=== PATIENT | male | born 1965 | race Caucasian/White ===

== ENCOUNTER 2020-01-28 15:00 | Emergency (ER) | payer OTHER ==
[2020-01-28] MEDS ORDERED: DIPH/PERTUSS(ACELL)/TETANUS VAC/PF 0.5 ML SYR (>=10YO) IM ONE (15:54)
--- NOTE | 2020-01-28 16:34 | RADIOLOGY REPORT (SQ) ---
EXAM DESCRIPTION: KNEE RIGHT 4 VIEWS IMAGES COMPLETED DATE/TIME: 01/28/2020 3:07 pm REASON FOR STUDY: knee laceration; hx of surgery COMPARISON: None. NUMBER OF VIEWS: Four views. TECHNIQUE: AP, lateral, and both oblique radiographic images acquired of the right knee. LIMITATIONS: None. FINDINGS: MINERALIZATION: Normal. BONES: No acute fracture or dislocation. No worrisome bone lesions. JOINT: No effusion. SOFT TISSUES: No soft tissue swelling. No radio-opaque foreign body. OTHER: No other significant finding. IMPRESSION: No radiographic abnormality of the right knee. TECHNICAL DOCUMENTATION: JOB ID: [id number]- All Rights Reserved Reading location - IP/workstation name: [email or web address]
--- NOTE | 2020-01-28 16:38 | ER Document Report ---
HPI - HPI Time Seen by Provider: 01/28/20 15:47 Context: Patient is a 54-year-old male who presents to the emergency department with a chief complaint of right knee pain. Patient states that he was gardening and was laying mulch down. He had some pruning lenin on the ground and went to go kneel down and kneeled into the lenin. Patient is able to walk. He is up-to-date on his tetanus immunization. Patient has history of surgery to his right knee before from an infection. - CONSTITUTIONAL Constitutional: DENIES: Fever, Chills - NEURO Neurology: DENIES: Weakness - CARDIOVASCULAR Cardiovascular: DENIES: Chest pain - RESPIRATORY Respiratory: DENIES: Trouble Breathing, Coughing - MUSCULOSKELETAL Musculoskeletal: REPORTS: Extremity pain - right medial knee - DERM Skin Color: Normal Skin Problems: Laceration - Right medial knee; 1 cm Past Medical History - General Information source: Patient - Social History Smoking Status: Unknown if Ever Smoked Family History: Reviewed & Not Pertinent Vertical Provider Document - CONSTITUTIONAL Agree With Documented VS: Yes Exam Limitations: No Limitations General Appearance: No Apparent Distress - HEENT HEENT: Atraumatic, Normocephalic, PERRLA - NECK Neck: Normal Inspection - RESPIRATORY Respiratory: No Respiratory Distress - CARDIOVASCULAR Cardiovascular: Regular Rate, Regular Rhythm Pulses: Normal: Radial - MUSCULOSKELETAL/EXTREMETIES Musculoskeletal/Extremeties: FROM, Tender - right medial knee at laceration site - NEURO Level of Consciousness: Awake, Alert, Appropriate Motor/Sensory: No Motor Deficit, No Sensory Deficit - DERM Integumentary: Warm, Dry, Laceration - 1 cm to right medial knee Course - Re-evaluation Re-evalutation: 01/28/20 17:46 Patient's knee x-ray is unremarkable. Laceration was closed with a suture. See procedure note. Capillary refill less than 3 seconds. Dorsalis pedis and posterior tibial pulses 2+. No vascular compromise noted. We will start the patient on Keflex to prevent infection. Follow-up precautions were given. Verbal discharge instructions were given to the patient. They verbalized un derstanding. They are stable for discharge. - Vital Signs Vital signs: Temp Pulse Resp BP Pulse Ox 98.0 F 78 16 145/88 H 97 01/28/20 15:05 01/28/20 15:05 01/28/20 15:05 01/28/20 15:05 01/28/20 15:05 Procedures - Laceration/Wound Repair Right Medial Knee Wound length (cm): 1 Wound's Depth, Shape: Superficial Laceration pre-procedure: Sterile PPE Lg rojas applied Volume Anesthetic (mLs): 0 - patient opted to have suture placed without anesthetic due to 1 stitch Wound explored: Clean, No foreign body removed Irrigated w/ Saline (mLs): 100 Wound Debrided: Minimal Wound Repaired With: Sutures Suture Size/Type: 4:0, Nylon Number of Sutures: 1 Post-procedure NV exam normal: Yes Complications: No Adult Front & Back picture: 1 - 1 cm laceration Discharge - Discharge Clinical Impression: Laceration Right knee pain Qualifiers: Chronicity: acute Qualified Code(s): M25.561 - Pain in right knee Condition: Stable Disposition: HOME, SELF-CARE Instructions: Laceration Care ([facility]), Prophylactic Antibiotic ([facility]), Tetanus Immunization Given ([facility]) Additional Instructions: Please return to your primary doctor, the ED, or an urgent care in 7 days for suture removal. Return immediately if you develop spreading redness around the wound, pus from the wound, worsening pain, or a fever of >100.4. Keep the area clean and dry. Wash gently with soap and water twice daily and cover with antibiotic ointment. Take the antibiotics to prevent infection. Prescriptions: Cephalexin Monohydrate [Keflex 500 mg Capsule] 500 mg PO Q6H 5 Days #20 capsule
[2020-01-28 17:42] VITALS: BP 136/93
== END 2020-01-28 18:12 | disposition home or self-care (01) ==
LOC: ER 15:00
DX: S81.011A Laceration without foreign body, right knee, initial encounter (principal); M25.561 Pain in right knee; W27.8XXA Contact with other nonpowered hand tool, initial encounter; Y93.H2 Activity, gardening and landscaping; Z23 Encounter for immunization
CPT/HCPCS: 90471; 90715; 99283